=== PATIENT | male | born 1950 | race African-American/Black ===

== ENCOUNTER 2017-04-09 15:38 | Inpatient (IN) ==
--- NOTE | 2017-04-09 16:17 | EKG Report ---
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
[2017-04-09 16:27] LABS: Hematocrit 38.7 VOL% (42.0-52.0); Hemoglobin 13.4 GM/DL (14.0-18.0); Mean Corpuscular HGB Conc 34.6 GM/DL (32-36); Mean Corpuscular Hemoglobin 30 PG (27-34); Mean Corpuscular Volume 85.8 FL (87-102); Platelet Count 307 T/CUMM (130-400); Red Blood Count 4.51 MC/CUMM (3.8-5.5); Red Cell Distribution Width 15.9 % (9.3-17.3); White Blood Count 3.9 T/CUMM (4-12)
[2017-04-09 16:28] LABS: Basophils % 0.5 % (0.0-0.8); Eosinophils # 0.1 10*3/uL (0.0-0.87); Eosinophils % 3.3 % (0.00-10.9); Immature Granulocytes % 0.3 %; Immature Granulocytes Absolute 0.01 #; Lymphocytes # 0.9 10*3/uL (1.4-4.0); Lymphocytes % 22.8 % (21.2-54.2); Mean Platelet Volume 9.4 FL (9.6-12.0); Monocytes # 0.3 10*3/uL (0.11-0.8); Monocytes % 7.4 % (1.7-12.7); Neutrophils # 2.6 10*3/uL (1.4-7.4); Neutrophils % 65.7 % (38.7-73.9)
--- NOTE | 2017-04-09 16:30 | General Surg History&Physical ---
Assessment and Plan - Time spent with patient Time spent with patient: Greater than 30 minutes (1) Incarcerated inguinal hernia, unilateral Status: Acute Assessment and plan: Impression: Incarcerated right inguinal hernia with bile probably direct Plan: Admission with IV antibiotics and surgery Current Visit: Yes History of Present Illness Chief complaint: Painful mass right groin History of present illness: Mr. Carter is a 66 year old male -Mong[place]ian who has difficulty given his good clear history of his situation. As a large mass in the right groin that on CT scan is suggestive of an incarcerated inguinal hernia. Does have small bowel in it with some evidence of inflammatory changes and it does not reduce itself. It remains somewhat tender at this time. He was seen at [facility] today and sent down here following his CT scan. His son clear what his real history is because he says only a few months at this area is been a large hernia. The hernia at this she knows been out for some time or been present for some time. The ER note from [facility] indicates that he has had this out for 2 months and why he was referred for elective surgery at that time is unclear. He is tender and is difficult to reduce so I guess we are going to be forced taken to surgery for surgical repair of this hernia. He could require lower abdominal incision in order to reduce his hernia if we can get it easily reduced because the amount of bile that out there and edema that may be associated with it. Allergies Allergy/AdvReac Type Severity Reaction Status Date / Time No Known Allergies Allergy Unverified 04/09/17 16:21 Medical,Surgical,& Family Hx - Medical History Medical History: noncontributory - Social History Smoking Status: Never smoker Frequency of Alcohol Use: Occasionally Type of Drug Use: None Functional capacity: independent ambulation Exam - Constitutional Vitals: Period Temp Pulse Resp BP Sys/Kinney Pulse Ox Last 24 Hr 97.8 F-97.8 F 59-59 18-18 191-202/117-169 97 General appearance: mild distress - Head Head exam: Present: normal inspection - ENT ENT exam: Present: normal exam - Neck Neck exam: Present: normal inspection - Respiratory Respiratory exam: Present: clear to auscultation bilaterally, rales - Cardiovascular Cardiovascular exam: Present: RRR - GI/Abdominal GI/Abdominal exam: Present: distended, hypoactive bowel sounds, hernia (Large right inguinal hernia reducible with extension into the scrotum), soft - Extremities Exam Extremities exam: Present: normal inspection - Back Exam Back exam: Present: normal inspection - Neurological Exam Neurological exam: Present: alert, oriented X3, CN II-XII intact - Skin Skin exam: Present: normal color, warm, dry 12 point system: reviewed and no additional remarkable complaints except as stated
--- NOTE | 2017-04-09 16:31 | Emergency Department Note ---
Alex Aguilar Rolonda, am scribing for, and in the presence of, Dany Robles MD 16:03. Margaret Aguilar Phillip K, MD, personally performed the services described in this documentation, ascribed by Minda Johnson in my presence, and it is both accurate and complete [id number] . Arrival - Arrival Chief Complaint: Urogenital - Male ED Nursing Triage Note: pt has had an inguinal hernia for 2 months. rt side swelling Mode of Arrival: Stretcher Limitations: No Limitations Source: Patient, Old Records Reviewed, RN Notes Reviewed Time Seen by Provider: 04/09/17 15:56 - History of Present Illness HPI Narrative: Pt is a 66 y/o male who presents to the ED via EMS for further evaluation of hernia with an onset of months. Pt was seen in ED in [place] and CT Scan showed an incarcerated hernia. Pt states that he has been having pain on the right side of his groin due to the hernia for x3 months. Pt has associated sxs of HTN. At time of triage pt's BP was 191/117. No other complaint/pain in ED. Onset (ago): month(s) Consistency: constant Severity: moderate, severe Severity scale (1-10): 5 Allergies/Adverse Reactions: Allergies Allergy/AdvReac Type Severity Reaction Status Date / Time No Known Allergies Allergy Unverified 04/09/17 16:21 Review of System - Review of System 12 point system: reviewed and no additional remarkable complaints except as stated - Review of System Constitutional: Absent: chills, fever Eyes: Absent: discharge Head/Ears/Nose/Throat: Absent: earache Respiratory: Absent: cough Cardiovascular: Absent: chest pain Gastrointestinal: Absent: nausea, vomiting Genitourinary male: Present: testicular pain Musculoskeletal: Absent: arm pain, back pain Skin: Absent: rash Neurological: Absent: headache, weakness Psychiatric: Absent: anxiety Endocrine: Absent: cold intolerance Hematological/Lymphatic: Absent: easy bleeding Allergic/Immunologic: Absent: facial swelling Medical,Surgical,& Family Hx - Social History Smoking Status: Never smoker Frequency of Alcohol Use: Occasionally Type of Drug Use: None Exam Vital Signs: Vital Signs Temperature 97.8 F 04/09/17 15:44 Pulse Rate 59 L 04/09/17 15:44 Respiratory Rate 18 04/09/17 15:44 Blood Pressure 191/117 04/09/17 15:44 O2 Sat by Pulse Oximetry 97 04/09/17 15:44 - General General appearance: alert, in no apparent distress - Head Head exam: Present: atraumatic, normocephalic - Eye Eye exam: Present: PERRL, EOMI - ENT ENT exam: Present: mucous membranes moist. Absent: mucous membranes dry - Neck Neck exam: Present: full ROM. Absent: tenderness - Chest Chest inspection: Present: symmetric chest wall rise. Absent: tenderness - Respiratory Respiratory exam: Present: normal lung sounds bilaterally. Absent: wheezes - Cardiovascular Cardiovascular exam: Present: regular rate, normal rhythm, normal heart sounds. Absent: bradycardia - Abdominal Exam Abdominal exam: Present: soft, normal bowel sounds. Absent: tenderness - exam: Present: testicular tenderness. Absent: normal inspection (large Incarcerated hernia to right side of groin) - Extremities Exam Extremities exam: Present: full ROM. Absent: tenderness - Back Exam Back exam: Present: full ROM. Absent: tenderness - Neurological Exam Neurological exam: Present: alert, oriented X3, CN II-XII intact - Psychiatric Psychiatric exam: Present: normal affect, normal mood - Skin Skin exam: Present: warm, dry, intact, normal color. Absent: rash Results - Labs CBC & BMP: 04/09/17 16:09 Lab Results: I have reviewed the patients labs - EKG EKG results: interpreted by ROGELIO, sinus rhythm (Right bundle branch block) - Diagnostic Findings Procedure: CT Abdomen and Pelvis: report reviewed by me (CT scan done [place] showed a right incarcerated inguinal hernia) Disposition Clinical Impression: Incarcerated right inguinal hernia, Hypertension Case discussed with: patient Disposition: Still a Patient Condition: Guarded Additional Instructions: Admit to Dr. Parkinson for surgery.
--- NOTE | 2017-04-09 16:33 | XRay Report ---
Portable chest Date: 04/09/2017 Clinical history: Generalized weakness Comparison: None Technique: Portable AP sitting chest Findings: The heart is normal in size with calcification in the aortic knob. Minimal atelectasis at the left lung base. Unremarkable mediastinum with degenerative changes. Impression: Arterial calcifications. Minimal atelectasis at the left lung base. PROCEDURE INTERPRETED AT [facility] DEPARTMENT OF RADIOLOGY Final Report Signed by: Dr. Sunni Del Angel
[2017-04-09] MEDS ORDERED: ceFAZolin 2,000 MG in SODIUM CHLORIDE 0.9% 100 ML IV STA (16:37)
[2017-04-09] MEDS ORDERED: ONDANSETRON 4 MG/2 ML VIAL IV PRN (16:39)
[2017-04-09] MEDS ORDERED: HYDROmorphone 2 MG/1 ML VIAL IV PRN (16:39)
[2017-04-09] MEDS ORDERED: ACETAMINOPHEN 325 MG TABLET PO PRN (16:39)
[2017-04-09] MEDS ORDERED: ceFAZolin 1,000 MG VIAL ONE ×2 (16:41→17:13)
[2017-04-09] MEDS: SODIUM CHLORIDE 0.9% 1,000 ML IV SCH ×3 (16:53→22:09)
[2017-04-09 17:04] LABS: Albumin 3.5 G/DL (3.4-5.0); Bilirubin,Total 0.4 MG/DL (0.2-1.0); Calcium 8.9 MG/DL (8.5-10.1); Osmolality,Calculated 267.2 MOS/KG (273-304); Potassium 3.7 MMOL/L (3.5-5.1); Total Protein 7.9 G/DL (6.4-8.3)
[2017-04-09] MEDS ORDERED: BUPIVACAINE 0.25% 50 ML VIAL ONE (17:13)
[2017-04-09] MEDS ORDERED: NEOSTIGMINE 10 MG/10 ML VIAL ONE (17:20)
[2017-04-09] MEDS ORDERED: LIDOCAINE 1% 5 ML VIAL ONE (17:20)
[2017-04-09] MEDS ORDERED: PHENYLEPHRINE 50 MG/5 ML VIAL ONE (17:20)
[2017-04-09] MEDS ORDERED: KETOROLAC 30 MG/1 ML VIAL ONE (17:20)
[2017-04-09] MEDS ORDERED: GLYCOPYRROLATE 0.4 MG/2 ML VIAL ONE (17:20)
[2017-04-09] MEDS ORDERED: PROPOFOL 200 MG/20 ML VIAL IV ONE (17:20)
[2017-04-09] MEDS ORDERED: DEXAMETHASONE 10 MG/1 ML VIAL ONE (17:20)
[2017-04-09] MEDS ORDERED: ONDANSETRON 4 MG/2 ML VIAL ONE (17:20)
[2017-04-09] MEDS ORDERED: PHENYLEPHRINE 1 MG/10 ML SYRINGE IV ONE (17:20)
--- NOTE | 2017-04-09 20:17 | Operative Note ---
Date of procedure: 04/09/17 Pre-op diagnosis: Large incarcerated right inguinal hernia Post-op diagnosis: other (Large incarcerated right indirect inguinal hernia) Procedure: Operative note: Preoperative diagnosis: Large incarcerated right inguinal hernia with bowel obstruction Postop diagnosis: Large incarcerated right inguinal hernia indirect with bowel obstruction Procedure: Reduction of bile from right inguinal hernia with high ligation of hernia sac Sera mesh repair of, inguinal floor, and invagination of hernia sac about the cord, Surgeon Dr. Parkinson Sketcher Jolie Hurtado, B[employer]ING PRESS OPERATOR ACNP Anesthesia was general endotracheal Brief history: 66-year-old -[place] male came in with a marked swelling of the right inguinal area with CT scan showing small bowel out into a large inguinal hernia. It was not reducible and is very sore and uncomfortable doing he been having some episodes of nausea times and decrease appetite. He describes this is getting larger today and more uncomfortable although it is hard to get a good history from him. He seems indicate this been out for only 2 months but certainly looks like something to be older than that. Because of the possibility of bile being compromised would like to bring her surgery at this time. Procedure: With patient in supine position prepped and draped in sterile fashion timeout and antibiotics completed we approach this area of the right inguinal region. I marked the midline case I had to open up the abdomen in the midline to reduce his bowel. At that point I was able to make an incision at the base of this mass which was about the level of the inguinal canal going down through skin subtenons tissue bleeding controlled with cauterization. The vein with a 2-0 Vicryl with a 3-0 Vicryl tie and divided it. We then cut down to the external oblique fascia and I could see the shelving edge at the lateral aspect of this wound. Still large mass there but it did give me a clue to where to make an incision in the fascia. I made an incision in the fascia and then dissected through the external ring which was markedly dilated at this time. We did that we still had a lot of tissue here that was difficult to determine what we are dealing with. Has reduced careful dissection of this area to free this bile up and out of this area to get a good plane. Finally was able get around the mass itself and as I attempted to mobilize the hernia little bit out of the sac it reduced itself spontaneously. This allowed us to further dissection on the medial aspect of this and picked up the cord structures were I began to dissected them out and isolate them from the hernia sac. Once I finally had the cord structures isolated and we had to stick hernia sac and went ahead and opened it about midway no bowel was out in it at this time it was a thickened hernia sac that we feel like is been there for a long time. At that point I dissected the hernia sac down to the internal ring but an internal pursestring of 2-0 Ethibond cut off the excess and then oversewed this with a running 2-0 Ethibond in order to get this flat and controlled. Once I did that I was able to identify what looked like was dilated transversalis fascia and take that and closed that over the floor with a running 3-0 Prolene suture to the internal ring. We then took a keyhole mesh and tacked it to the pubis symphysis and ran around Poupart's ligament with a 3- 0 Prolene suture. Once I got beyond the internal ring that I begin the tach the mesh to the transversalis fascia with interrupted 3-0 Prolene suture and then we crossed the wings. Finger easily admitted into the opening this time. But the nerve back down so that it would be safe. Washed out with Ancef solution. I then closed the external oblique fascia with interrupted 2-0 Ethibond suture closing down the external ring. Prior to closing on that external ring though I had cut the remnant of the distal part of the sac and invaginated around the cord structures with running 3-0 Prolene suture in order to prevent a hydrocele from developing. With all that completed and the fascia closed and we washed out and closed the subtenons tissue running 3-0 Vicryl. I then closed the skin with skin clips dressings were applied and patient taken recovery room stable satisfactory condition. Estimated blood loss was 30-40 cc Sponge count correct 2 Drains none Complications none Condition stable satisfactory Anesthesia: NOEL Surgeon / Physician: Juan Parkinson Sketcher: Jolie Hurtado Estimated blood loss: other (30 cc) Specimens: other (Hernia sac) Condition: stable Disposition: floor Results - Labs CBC & BMP: 04/09/17 16:09 04/09/17 16:09 Discharge Plan - Discharge Medications No Action No Known Home Medications [No Known Home Medications] - Follow Up or Referral - Forms/Instructions
--- NOTE | 2017-04-09 20:20 | Anesthesia Post-Op ---
Anesthesia Post OP - Post Ansesthetic Evaluation Patient seen in post op: Yes Resp: within normal limits CV: within normal limits Mental: within normal limits Temp: within normal limits [id number]-[id number]: within normal limits Nausea and Vomiting: within normal limits Pain: within normal limits
[2017-04-09] MEDS ORDERED: fentaNYL 100 MCG/2 ML VIAL ONE (20:25)
[2017-04-09] MEDS ORDERED: ePHEDrine 50 MG/ML AMP ONE (20:25)
[2017-04-09] MEDS ORDERED: SEVOFLURANE 1 UNIT/15 MINUTE INH ONE (20:25)
[2017-04-09] MEDS ORDERED: MIDAZOLAM 2 MG/2 ML VIAL ONE (20:26)
[2017-04-09] MEDS ORDERED: LACTATED RINGERS 1,000 ML IV ONE (20:26)
[2017-04-09] MEDS ORDERED: ACETAMINOPHEN 1,000 MG/100 ML VIAL IV ONE (20:26)
[2017-04-09 20:31] LABS: Apearance,Urine CLEAR (Clear); Bilirubin,Urine Negative (Negative); Blood, Urine Moderate mg/dL (Negative); Glucose,Urine (UA) Negative (Negative); Ketones,Urine Negative (Negative); Nitrite,Urine Negative (Negative); Protein,Urine Negative; RBC,Urine 1 /HPF (0-4); Urine Color Colorless (Yellow); Urine Specific Gravity 1.002 (1.001-1.035); Urine Urobilinogen < 2.0 EU/DL (0.2-1.0)
[2017-04-10] MEDS: SODIUM CHLORIDE 0.9% 1,000 ML IV SCH ×9 (01:32→22:58)
[2017-04-10 07:02] LABS: Basophils % 0.4 % (0.0-0.8); Eosinophils # 0.1 10*3/uL (0.0-0.87); Eosinophils % 1.9 % (0.00-10.9); Hematocrit 29.2 VOL% (42.0-52.0); Hemoglobin 9.9 GM/DL (14.0-18.0); Immature Granulocytes % 0.2 %; Immature Granulocytes Absolute 0.01 #; Lymphocytes # 0.5 10*3/uL (1.4-4.0); Lymphocytes % 8.6 % (21.2-54.2); Mean Corpuscular HGB Conc 33.9 GM/DL (32-36); Mean Corpuscular Hemoglobin 30 PG (27-34); Mean Corpuscular Volume 87.2 FL (87-102); Mean Platelet Volume 9.1 FL (9.6-12.0); Monocytes # 0.5 10*3/uL (0.11-0.8); Neutrophils # 4.3 10*3/uL (1.4-7.4); Neutrophils % 79.9 % (38.7-73.9); Platelet Count 227 T/CUMM (130-400); Red Blood Count 3.35 MC/CUMM (3.8-5.5); Red Cell Distribution Width 16.3 % (9.3-17.3); White Blood Count 5.4 T/CUMM (4-12)
[2017-04-10 07:30] LABS: Calcium 8.4 MG/DL (8.5-10.1); Osmolality,Calculated 278.4 MOS/KG (273-304); Potassium 4.8 MMOL/L (3.5-5.1)
[2017-04-10] MEDS: PANTOPRAZOLE 40 MG VIAL IV SCH (08:39)
--- NOTE | 2017-04-10 09:14 | Event Note ---
04/10/2017 Patient is stable at this time vital signs look good adequate a little low down to 29 came in at 38 part of this may be hydration. There is minimal swelling in the area of the hernia repair and of the scrotum. Pain is moderate but manageable. His abdomen is still slightly distended bowel sounds are hypoactive but is tolerating some clear liquids. We will plan to keep him on clear liquids at this time since we did not get a good look at the bile once it spontaneously reduced itself. At the time of surgery were little concerned that we had a little dark fluid from the abdomen once that had reduced itself. Need to watch this carefully to be sure that there was no ischemic bowel changes that may manifest itself. We will mobilize him at this time. We will keep his Mei today hopefully get that out tomorrow if he is continued to do well.
[2017-04-10] MEDS: ENOXAPARIN 40 MG/0.4 ML SYRINGE SUBCUT SCH (14:25)
[2017-04-11 03:16] LABS: Basophils % 0.6 % (0.0-0.8); Eosinophils # 0.1 10*3/uL (0.0-0.87); Eosinophils % 2.1 % (0.00-10.9); Hematocrit 29.7 VOL% (42.0-52.0); Immature Granulocytes % 0.2 %; Immature Granulocytes Absolute 0.01 #; Lymphocytes # 0.7 10*3/uL (1.4-4.0); Lymphocytes % 12.7 % (21.2-54.2); Mean Corpuscular HGB Conc 33.7 GM/DL (32-36); Mean Corpuscular Hemoglobin 29 PG (27-34); Mean Corpuscular Volume 86.6 FL (87-102); Mean Platelet Volume 9.4 FL (9.6-12.0); Monocytes # 0.9 10*3/uL (0.11-0.8); Monocytes % 16.6 % (1.7-12.7); Neutrophils # 3.6 10*3/uL (1.4-7.4); Neutrophils % 67.8 % (38.7-73.9); Platelet Count 226 T/CUMM (130-400); Red Blood Count 3.43 MC/CUMM (3.8-5.5); Red Cell Distribution Width 15.9 % (9.3-17.3); White Blood Count 5.4 T/CUMM (4-12)
[2017-04-11] MEDS: SODIUM CHLORIDE 0.9% 1,000 ML IV SCH ×4 (03:30→10:39)
[2017-04-11 04:16] LABS: Calcium 8.4 MG/DL (8.5-10.1); Magnesium 1.9 MG/DL (1.8-2.4); Osmolality,Calculated 270.8 MOS/KG (273-304); Potassium 4.1 MMOL/L (3.5-5.1)
[2017-04-11 04:24] LABS: Eosinophils 4 % (0-10); Lymphocytes 10 % (20-55); Segmented Neutrophils 76 % (50-85)
[2017-04-11 04:25] LABS: Platelet Estimate Normal; Total Cells Counted 100
[2017-04-11] MEDS ORDERED: hydrALAZINE 20 MG/1 ML VIAL IV ONE (08:00)
[2017-04-11] MEDS ORDERED: hydrALAZINE 20 MG/1 ML VIAL IV PRN (08:01)
[2017-04-11] MEDS: PANTOPRAZOLE 40 MG VIAL IV SCH (08:24)
--- NOTE | 2017-04-11 09:51 | Event Note ---
04/11/2017 0950 hrs. Patient is essentially afebrile his blood pressure is gone up a little bit but I think this related to pain. His tenderness is around the surgery site scrotal region little bit of edema associated with that. I would expect this due to the amount of surgery and dissection that was required. His abdomen seems soft still mildly distended from my standpoint but there is bowel sounds present but no bowel movement at this time. No tenderness that associated with the abdomen that seems to be soft just tenderness around the area of the surgery. Will plan to take his Mei catheter out today and to ambulate at some point. He is tender enough I do not know whether he can manage at home very well but will get that situation evaluated also.
[2017-04-11] MEDS: DEXTROSE 5% NACL 0.45% 1,000 ML IV SCH ×2 (11:03→23:19)
[2017-04-11] MEDS: ENOXAPARIN 40 MG/0.4 ML SYRINGE SUBCUT SCH (14:26)
[2017-04-12] MEDS: DEXTROSE 5% NACL 0.45% 1,000 ML IV SCH ×3 (02:15→16:31)
[2017-04-12] MEDS ORDERED: BISACODYL 5 MG TABLET PO ONE (07:04)
[2017-04-12] MEDS: DOCUSATE SODIUM 100 MG CAPSULE PO SCH ×2 (08:35→20:11)
[2017-04-12] MEDS: ALUMINUM/MAGNES/SIMETH MAX STR 30 ML UDCUP PO SCH ×3 (08:35→20:10)
[2017-04-12] MEDS: PANTOPRAZOLE 40 MG VIAL IV SCH (08:35)
--- NOTE | 2017-04-12 12:27 | General Surgery Progress Note ---
Assessment and Plan - Time spent with patient Time spent with patient: Less than 30 minutes (1) Incarcerated inguinal hernia, unilateral Status: Acute Assessment and plan: Impression: Incarcerated right inguinal hernia with bile probably direct Plan: Admission with IV antibiotics and surgery 04/12/2017. Patient is progressing fairly well and is a little more active and mobile at this time. He was pretty sore yesterday but soreness is less and he has been able to get up and move around some. Mei is out and he has been voiding without problems but still has not had a bowel movement. The abdomen appears to be soft hypoactive bowel sounds present. He does not seem to be any signs to suggest the possibility of any ischemic bowel at this point. We will advance his diet to solid food and get him more active ambulatory mcgrath. His hematocrit is holding steady at 29 white count is only 5000. Rest of his labs are within normal limits. Will just try some physical therapy on getting functional so that when he does go home he will be needing much help. Current Visit: Yes Subjective Patient reports: Present: no new complaints, feels better, pain is less, tolerating liquids well, no bowel movement, afebrile. Absent: vomiting Exam - Constitutional Vitals: Period Temp Pulse Resp BP Sys/Kinney Pulse Ox Last 24 Hr 98.4 F-99.1 F 69-91 16-20 98-128/57-83 98-100 General appearance: mild distress - Head Head exam: Present: normal inspection - ENT ENT exam: Present: normal exam - Neck Neck exam: Present: normal inspection - Respiratory Respiratory exam: Present: rales - Cardiovascular Cardiovascular exam: Present: RRR - GI/Abdominal GI/Abdominal exam: Present: hypoactive bowel sounds, soft, other (Incision is healing up nicely is clean and dry at this time. There still remains a little swelling inferior to that but minimal scrotal swelling.) - Extremities Exam Extremities exam: Present: normal inspection - Neurological Exam Neurological exam: Present: alert, oriented X3, CN II-XII intact - Skin Skin exam: Present: normal color, warm, dry Results - Labs CBC & BMP: 04/11/17 02:10 04/11/17 02:10 Lab Results: I have reviewed the past 24 hour labs Quality Measures - VTE Contraindication to Pharmacological VTE Prophylaxis: Clinical assessment deems Pt at low risk, no prophalaxis needed
[2017-04-12] MEDS: ENOXAPARIN 40 MG/0.4 ML SYRINGE SUBCUT SCH (13:30)
--- NOTE | 2017-04-12 13:37 | Pathology Report from [facility] ---
[facility] ACCESSION # : [id number] PATIENT NAME : Pérez Carter ORDERING DR : HYUN DEUTSCH MD CLINICAL HX: Incarcerated inguinal hernia POST-OP DX: Same SPECIMEN INFO: Hernia sac GROSS DESCRIPTION: The specimen is received in formalin labeled with the patients name PÉREZ CARTER is a 16.0 x 3.2 x 1.5 cm fibromembranous tissue fragment with no nodules or masses appreciated. Production Broacher sections are submitted in one cassette. DIAGNOSIS FOR PÉREZ CARTER: RIGHT INGUINAL TISSUE: Fibrovascular connective tissue and chronic inflammation consistent with clinical history of hernia. COLLECTED DATE: 04/11/2017 [facility] REPORT DATE: 04/12/2017 ELECTRONICALLY SIGNED BY: Charleen Castañeda III, M.D. 04/12/2017 - 10:05:47 [facility] CENTERDominique
[2017-04-13] MEDS: ALUMINUM/MAGNES/SIMETH MAX STR 30 ML UDCUP PO SCH ×4 (02:12→21:08)
[2017-04-13] MEDS: DEXTROSE 5% NACL 0.45% 1,000 ML IV SCH ×2 (07:12→08:48)
[2017-04-13] MEDS: DOCUSATE SODIUM 100 MG CAPSULE PO SCH ×2 (08:04→21:08)
[2017-04-13] MEDS: PANTOPRAZOLE 40 MG TABLET PO SCH (08:04)
--- NOTE | 2017-04-13 09:06 | General Surgery Progress Note ---
Assessment and Plan - Time spent with patient Time spent with patient: Less than 30 minutes (1) Incarcerated inguinal hernia, unilateral Status: Acute Assessment and plan: Impression: Incarcerated right inguinal hernia with bile probably direct Plan: Admission with IV antibiotics and surgery 04/12/2017. Patient is progressing fairly well and is a little more active and mobile at this time. He was pretty sore yesterday but soreness is less and he has been able to get up and move around some. Mei is out and he has been voiding without problems but still has not had a bowel movement. The abdomen appears to be soft hypoactive bowel sounds present. He does not seem to be any signs to suggest the possibility of any ischemic bowel at this point. We will advance his diet to solid food and get him more active ambulatory mcgrath. His hematocrit is holding steady at 29 white count is only 5000. Rest of his labs are within normal limits. Will just try some physical therapy on getting functional so that when he does go home he will be needing much help. 04/13/2017. Patient seemed to be progressing well and is more ambulatory. He is tolerating his solid food with no nausea or vomiting but no bowel movement to date. Bowel sounds are active and is soft. Patient's main complaint is swelling and some discomfort in the scrotal area. Scrotal area is a little edematous at this time as I would expect from the large hernia that we had to deal with. Incision looks clean and dry seems to be progressing well with some tenderness with it it to. He may be trying to develop a hydrocele in this area even though we evaginated the upper part of the sac and attempt to try to reduce chances for hydrocele formation. He is little more functional and hopefully if he gets a bowel movement is doing fairly well we send him home tomorrow. Current Visit: Yes Subjective Patient reports: Present: no new complaints, feels better, pain is less, tolerating a regular diet, no bowel movement, afebrile, other (Still with some swelling and discomfort in the scrotal area) Exam - Constitutional Vitals: Period Temp Pulse Resp BP Sys/Kinney Pulse Ox Last 24 Hr 98.2 F-100.3 F 74-94 17-20 100-116/61-78 94-100 General appearance: mild distress - Head Head exam: Present: normal inspection - ENT ENT exam: Present: normal exam - Neck Neck exam: Present: normal inspection - Respiratory Respiratory exam: Present: clear to auscultation bilaterally, rales - Cardiovascular Cardiovascular exam: Present: RRR - GI/Abdominal GI/Abdominal exam: Present: hypoactive bowel sounds, tenderness (Tenderness with some swelling of the scrotal area at this time.), soft, other (Incision in the right lower quadrant is clean and dry with no sign of any infection present. ). Absent: distended - Extremities Exam Extremities exam: Present: normal inspection - Back Exam Back exam: Present: normal inspection - Neurological Exam Neurological exam: Present: alert, oriented X3, CN II-XII intact - Skin Skin exam: Present: normal color, warm, dry Results - Labs CBC & BMP: 04/11/17 02:10 04/11/17 02:10 Lab Results: I have reviewed the past 24 hour labs Quality Measures - VTE Contraindication to Pharmacological VTE Prophylaxis: Clinical assessment deems Pt at low risk, no prophalaxis needed Specialty Discharge - Follow Up or Referrals Follow up with: Juan Parkinson MD [Physician] -
[2017-04-13] MEDS ORDERED: BISACODYL 5 MG TABLET PO ONE (09:18)
[2017-04-13] MEDS: ENOXAPARIN 40 MG/0.4 ML SYRINGE SUBCUT SCH (13:28)
[2017-04-14] MEDS: ALUMINUM/MAGNES/SIMETH MAX STR 30 ML UDCUP PO SCH ×4 (00:40→20:35)
[2017-04-14] MEDS: DEXTROSE 5% NACL 0.45% 1,000 ML IV SCH (01:38)
[2017-04-14 06:04] LABS: Basophils % 0.9 % (0.0-0.8); Eosinophils # 0.2 10*3/uL (0.0-0.87); Eosinophils % 5.5 % (0.00-10.9); Hematocrit 23.8 VOL% (42.0-52.0); Immature Granulocytes % 0.3 %; Immature Granulocytes Absolute 0.01 #; Lymphocytes # 0.9 10*3/uL (1.4-4.0); Lymphocytes % 27.1 % (21.2-54.2); Mean Corpuscular HGB Conc 33.6 GM/DL (32-36); Mean Corpuscular Hemoglobin 29 PG (27-34); Mean Corpuscular Volume 86.5 FL (87-102); Mean Platelet Volume 9.2 FL (9.6-12.0); Monocytes # 0.5 10*3/uL (0.11-0.8); Neutrophils # 1.7 10*3/uL (1.4-7.4); Neutrophils % 52.2 % (38.7-73.9); Platelet Count 242 T/CUMM (130-400); Red Blood Count 2.75 MC/CUMM (3.8-5.5); Red Cell Distribution Width 15.1 % (9.3-17.3); White Blood Count 3.3 T/CUMM (4-12)
[2017-04-14 06:34] LABS: Calcium 8.5 MG/DL (8.5-10.1); Magnesium 2.4 MG/DL (1.8-2.4); Osmolality,Calculated 271.8 MOS/KG (273-304); Potassium 4.8 MMOL/L (3.5-5.1)
[2017-04-14] MEDS: DOCUSATE SODIUM 100 MG CAPSULE PO SCH ×2 (08:08→20:35)
[2017-04-14] MEDS: PANTOPRAZOLE 40 MG TABLET PO SCH (08:08)
[2017-04-14 08:13] LABS: Hematocrit 22.7 VOL% (42.0-52.0); Hemoglobin 7.7 GM/DL (14.0-18.0)
[2017-04-14] MEDS ORDERED: SODIUM CHLORIDE 0.9% 250 ML IV PRN (08:15)
--- NOTE | 2017-04-14 08:21 | General Surgery Progress Note ---
Assessment and Plan (1) Incarcerated inguinal hernia, unilateral Status: Acute Assessment and plan: Impression: Incarcerated right inguinal hernia with bile probably direct Plan: Admission with IV antibiotics and surgery 04/12/2017. Patient is progressing fairly well and is a little more active and mobile at this time. He was pretty sore yesterday but soreness is less and he has been able to get up and move around some. Mei is out and he has been voiding without problems but still has not had a bowel movement. The abdomen appears to be soft hypoactive bowel sounds present. He does not seem to be any signs to suggest the possibility of any ischemic bowel at this point. We will advance his diet to solid food and get him more active ambulatory mcgrath. His hematocrit is holding steady at 29 white count is only 5000. Rest of his labs are within normal limits. Will just try some physical therapy on getting functional so that when he does go home he will be needing much help. 04/13/2017. Patient seemed to be progressing well and is more ambulatory. He is tolerating his solid food with no nausea or vomiting but no bowel movement to date. Bowel sounds are active and is soft. Patient's main complaint is swelling and some discomfort in the scrotal area. Scrotal area is a little edematous at this time as I would expect from the large hernia that we had to deal with. Incision looks clean and dry seems to be progressing well with some tenderness with it it to. He may be trying to develop a hydrocele in this area even though we evaginated the upper part of the sac and attempt to try to reduce chances for hydrocele formation. He is little more functional and hopefully if he gets a bowel movement is doing fairly well we send him home tomorrow. 04/14/2017. Patient is better his vital signs are good and stable he is not complaining of any lightheadedness at this time. We will plan on letting him go home today but unfortunately he comes in with a hematocrit that is 22.7. White count is not elevated and creatinine looks good. At this point it some known exactly what this source is but the patient has had a bowel movement that he describes as okay normal looking. The abdomen is much better and softer hypoactive and good bowel sounds present. The incision is not unusually swollen and the scrotal area is not unusually swollen either. It is softer at this time. Certainly we do not have a good source for acute blood loss but this may be related to IV fluids and then certainly is been on some Lovenox at this time. I will stop those and transfuse him if he looks good and stable I think he could go home tomorrow. Current Visit: Yes Subjective Patient reports: Present: no new complaints, pain is less, tolerating a regular diet, bowel movement, afebrile, other (Drop in his hematocrit to 22.7 but seems to be asymptomatic) Exam - Constitutional Vitals: Period Temp Pulse Resp BP Sys/Kinney Pulse Ox Last 24 Hr 97.8 F-99.5 F 65-86 18-20 112-152/67-89 96-100 General appearance: mild distress - Head Head exam: Present: normal inspection - ENT ENT exam: Present: normal exam - Neck Neck exam: Present: normal inspection - Respiratory Respiratory exam: Present: clear to auscultation bilaterally, rales - Cardiovascular Cardiovascular exam: Present: RRR - GI/Abdominal GI/Abdominal exam: Present: hypoactive bowel sounds, tenderness (Tenderness about the right lower quadrant incisional site.), soft, other (Scrotal area is softer and less swollen.). Absent: distended, guarding - Extremities Exam Extremities exam: Present: normal inspection - Back Exam Back exam: Present: normal inspection - Neurological Exam Neurological exam: Present: alert, oriented X3, CN II-XII intact - Skin Skin exam: Present: normal color, warm, dry Results - Labs CBC & BMP: 04/14/17 07:34 04/14/17 05:31 Lab Results: I have reviewed the past 24 hour labs Quality Measures - VTE Contraindication to Pharmacological VTE Prophylaxis: Clinical assessment deems Pt at low risk, no prophalaxis needed Specialty Discharge - Follow Up or Referrals Follow up with: Juan Parkinson MD [Physician] -
[2017-04-14 20:07] LABS: Hematocrit 27.7 VOL% (42.0-52.0); Hemoglobin 9.6 GM/DL (14.0-18.0)
[2017-04-15] MEDS: ALUMINUM/MAGNES/SIMETH MAX STR 30 ML UDCUP PO SCH ×2 (01:14→06:44)
[2017-04-15] MEDS: DEXTROSE 5% NACL 0.45% 1,000 ML IV SCH (02:31)
[2017-04-15 05:30] LABS: Basophils % 0.8 % (0.0-0.8); Eosinophils # 0.2 10*3/uL (0.0-0.87); Eosinophils % 5.8 % (0.00-10.9); Hematocrit 26.5 VOL% (42.0-52.0); Hemoglobin 9.2 GM/DL (14.0-18.0); Immature Granulocytes % 0.3 %; Immature Granulocytes Absolute 0.01 #; Lymphocytes # 0.9 10*3/uL (1.4-4.0); Lymphocytes % 23.2 % (21.2-54.2); Mean Corpuscular HGB Conc 34.7 GM/DL (32-36); Mean Corpuscular Hemoglobin 30 PG (27-34); Mean Platelet Volume 9.3 FL (9.6-12.0); Monocytes # 0.6 10*3/uL (0.11-0.8); Monocytes % 14.1 % (1.7-12.7); Neutrophils # 2.2 10*3/uL (1.4-7.4); Neutrophils % 55.8 % (38.7-73.9); Platelet Count 249 T/CUMM (130-400); Red Blood Count 3.08 MC/CUMM (3.8-5.5)
[2017-04-15 06:03] LABS: Calcium 8.5 MG/DL (8.5-10.1); Magnesium 2.3 MG/DL (1.8-2.4); Osmolality,Calculated 268.1 MOS/KG (273-304); Potassium 4.4 MMOL/L (3.5-5.1)
[2017-04-15 07:32] VITALS: BP 149/90
[2017-04-15] MEDS: PANTOPRAZOLE 40 MG TABLET PO SCH (08:47)
[2017-04-15] MEDS: DOCUSATE SODIUM 100 MG CAPSULE PO SCH (08:47)
--- NOTE | 2017-04-15 09:15 | Discharge Summary ---
Hospital Course - Hospital Course Hospital Course: Discharge summary 04/15/2017. Diagnosis 1 incarcerated right inguinal hernia 2 hypertension 3 chronic anemia, exacerbated by surgical blood loss Procedure performed 04/09/2017: Reduction of incarcerated right inguinal hernia with primary mesh repair of hernial defect by Dr. Parkinson [facility] course: This 66-year-old -Al[place]ian male presented to the emergency room at [facility] after being referred from the [facility]. He presented to that facility after worsening right groin pain. He had a prior history of greater than 3 months of right groin swelling, but gave no direct history of having had a hernia. He had previously been seen and evaluated for this, but was told it would "go down on its own." He presented to the ER at [facility] when the pain became intolerable at home and upon presentation at that facility a CT of the abdomen and pelvis was performed which showed a large incarcerated right inguinal hernia with small bowel out into the hernia sac. His labs were essentially normal except for hematocrit of 29 but it was felt that surgical intervention was warranted at that point and he was referred to [place]. Dr. Parkinson was consulted, and examined the patient, who is in a good deal of discomfort. He was taken to the operating room on 04/09, where a very large hernia sac was encountered that extended into the right scrotum. There was a large loop of bowel present and with great difficulty this loop of bowel was reduced. There was evidence that the hernia sac was long-standing as it was densely adhesed and thickened. Once the area of hernia sac had been identified it was dissected free from the densely adhesed peritoneum, the hernia sac was then removed and mesh repair was undertaken. Postoperatively the patient did well except for a good degree of postop pain. His bowel was a little slow to open up, and he did not have a bowel movement until several days postop. With the degree of incarcerated bowel , we felt it prudent to watch this closely, which did delay his recovery somewhat. However on postop day 4, his bowels did begin to function, but he also noted increase in the scrotal swelling. This was accompanied by a drop in his hematocrit, which dropped to 22. On 04/14/2017, even though he was essentially asymptomatic we felt it prudent to transfuse him 2 units of packed cells, which he tripped tolerated well. He is today ambulatory, he is tolerating a regular diet without nausea or vomiting, his bowels are moving and he is voiding without difficulty. Scrotal swelling is stable and there is no unusual induration. His hematocrit is up to 26.5 and his vital signs are normal with O2 saturations are in 98%. His blood pressure is 120 diastolic and he is able to move about the room with scrotal support in place and is much less tender. With the patient feeling well now and his vital sounds, O2 saturation, and blood counts now being stable, we have elected to discharge him home, with a short-term 7-10 day follow-up in our office. We will plan to repeat his H&H on that visit just to be sure that he is able to maintain. We will plan to also recommend him a follow-up with his primary care physician just to monitor his anemia, and have him referred if this seems to be a persistent problem. I just gave him some tramadol 1 every 4-6 hours as needed for pain and have him resume his antihypertensives at home. He was cautioned against lifting and driving, and other physical limitations and restrictions were discussed with the patient. - Time spent with patient Time with patient DS: Greater than 30 minutes Diagnosis - Discharge Diagnosis (1) Incarcerated right inguinal hernia Status: Acute (2) Hypertension Status: Acute Specialty Discharge - Follow Up or Referrals Follow up with: Juan Parkinson MD [Physician] - 04/22/17 10:30 am (7-10 days with a HH lab work to be done at [facility] on apr 22 9:00. please bring medicnes, insurance cards and photo id to your appointment with DR. Parkinson.) Discharge Plan - Discharge Data Disposition: Disch To Home/Self Care Condition at Discharge: Stable Discharge Diet: advance to your usual diet Hygiene: may shower Weight Bearing at Discharge: full weight bearing Driving: not until seen by doctor Contact your physician if you experience:: fever over 101, Difficulty voiding, Redness or swelling, Nausea/Vomiting, Shortness of breath, Bleeding, pain uncontrolled by pain medications Wound / Dressing Care Instructions: Remove Band-Aid and shower daily. Use good antibacterial soap over the incision, rinse well and pat dry. Late a light gauze over the lui or cover with a light Band-Aid. Let your shortness or jockstrap hold the bandage in place. If needed, use a small piece of tape along the edges to hold the gauze in place. Where jockstrap for comfort and to support your bandage. - Discharge Medications New Docusate Sodium Cap [Colace Cap] 100 mg PO BEDTIME #30 capsule Tramadol HCl [Tramadol Tab] 50 mg PO Q6H PRN #20 tablet PRN Reason: Pain Moderate To Severe (4-10) - Follow Up or Referral Follow Up: Juan Parkinson MD [Physician] - 04/22/17 10:30 am (7-10 days with a HH lab work to be done at [facility] on apr 22 9:00. please bring medicnes, insurance cards and photo id to your appointment with DR. Parkinson.) - Forms/Instructions Exam - Constitutional Vitals: Period Temp Pulse Resp BP Sys/Kinney Pulse Ox Last 24 Hr 98.2 F-99.9 F 64-81 18-20 100-149/65-90 92-100 General appearance: normal weight, no acute distress - Head Head exam: Present: normocephalic - Eye Eye exam: Present: EOMI Pupils: Present: GEORGE - Neck Neck exam: Absent: lymphadenopathy, tenderness - Respiratory Respiratory exam: Present: clear to auscultation bilaterally - Cardiovascular Cardiovascular exam: Present: regular rate and rhythm. Absent: rubs, tachycardia - GI/Abdominal GI/Abdominal exam: Present: hypoactive bowel sounds, soft, other (Right groin incision is clean and dry. There is minimal surgical induration along the incision. Scrotal contents is soft with minimal swelling. This is stable from yesterday's and Mondays exam. There is no unusual ecchymosis. No erythema or unusual tenderness.) - Extremities Exam Extremities exam: Present: normal inspection Discharge Results Labs on day of discharge: Labs from last 24 hours 04/15/17 04/15/17 04/14/17 04:20 04:20 19:49 WBC 4.0 RBC 3.08 L Hgb 9.2 L 9.6 L D Hct 26.5 L 27.7 L MCV 86.0 L MCH 30 MCHC 34.7 RDW 15.0 Plt Count 249 MPV 9.3 L Neut % (Auto) 55.8 Lymph % (Auto) 23.2 [place] % (Auto) 14.1 H Eos % (Auto) 5.8 Baso % (Auto) 0.8 Neut # (Auto) 2.2 Lymph # (Auto) 0.9 L [place] # (Auto) 0.6 Eos # (Auto) 0.2 Baso # (Auto) 0.0 Immature Gran % 0.3 Nucleated RBC % 0.0 Immature Gran # 0.01 Nucleated RBCs # 0.00 Immature Plt Fraction 0.0 Sodium 135 L Potassium 4.4 Chloride 100 Carbon Dioxide 31 Anion Gap 8.4 BUN 11 Creatinine 0.70 GFR Calculation 123 BUN/Creatinine Ratio 15.00 Glucose 90 Calculated Osmolality 268.1 L Calcium 8.5 Magnesium 2.3 Blood Type Antibody Screen Crossmatch 04/14/17 08:15 WBC RBC Hgb Hct MCV MCH MCHC RDW Plt Count MPV Neut % (Auto) Lymph % (Auto) [place] % (Auto) Eos % (Auto) Baso % (Auto) Neut # (Auto) Lymph # (Auto) [place] # (Auto) Eos # (Auto) Baso # (Auto) Immature Gran % Nucleated RBC % Immature Gran # Nucleated RBCs # Immature Plt Fraction Sodium Potassium Chloride Carbon Dioxide Anion Gap BUN Creatinine GFR Calculation BUN/Creatinine Ratio Glucose Calculated Osmolality Calcium Magnesium Blood Type B POSITIVE Antibody Screen Negative Crossmatch See Detail DS: Provider Date of admission: 04/09/17 16:39 Primary care physician: . No PCP Attending physician on admission: Juan Parkinson MD Consults: 04/09/17 16:52 Consult to Anesthesiology [CONS] Routine Consulting Provider: Reason for Anesthesiology: Pre-op Clearance 04/09/17 22:22 Consult to Pastoral Services [CONS] Routine Comment: Pastoral Screen: Request Sole Layer Visit Pastoral Screen Source of Request: Patient 04/11/17 09:49 Consult to Physical Therapy [CONS] Routine Reason for Physical Therapy: Evaluate and Treat Start Therapy: Tomorrow Consult Comment: ambulate BID 04/11/17 09:51 Consult to Case Mgmt/Social Srvs [CONS] Routine Reason for Case Mgmt/Social Srvs: Discharge Planning Home Health Consult Comment: Unknown home situation may need home health 04/12/17 12:24 Consult to Physical Therapy [CONS] Routine Reason for Physical Therapy: Evaluate and Treat Start Therapy: Today Consult Comment: ambulate into dunn bid Discharging clinician: Jolie Hurtado, HARRIET, R
== END 2017-04-15 10:05 | disposition home or self-care (01) | DRG 351 ==
LOC: N.ED 15:38 → N.EDINP 16:39 → N.3E 17:25 → N.EDINP 17:29 → N.3E 21:12
PROVIDERS: ADMIT Specialist; ATTEND Specialist